=== PATIENT | male | born 1990 | race Hispanic/Latino ===

== ENCOUNTER 2023-04-12 08:30 | Emergency (ER) | payer SELFPAY ==
[~2023-04-12] VITALS: Ht 175.3 cm; Wt 101.0 kg
[2023-04-12] VITALS (7 sets, daily range): BP systolic 87–140; BP diastolic 62–94
[2023-04-12 08:51] LABS: BASO% 0.3 % (0-3); EOS% 4.2 % (0-8); HEMATOCRIT 42.4 % (39.0-50.0); HEMOGLOBIN 14.7 g/dl (14.0-18.0); IMMATURE GRANULOCYTES 0.1 % (0.0-5.0); LYMPH% 16.5 % (15-41); MEAN CELL VOLUME 89.8 fL CALC (80.0-100.0); MEAN CORPUSCULAR HGB 31.1 pG CALC (26.0-32.0); MEAN CORPUSCULAR HGB CONC 34.7 g/dL CAL (32.0-36.0); MONO% 7.5 % (2-13); NEUT# 7.34 thou/uL (1.82-7.42); NEUT% 71.4 % (42-76); RED BLOOD COUNT 4.72 mill/uL (4.70-6.10); RED CELL DISTRI WIDTH 11.7 % (11.5-15.5)
[2023-04-12 09:10] LABS: ALBUMIN 4.3 g/dL (3.2-5.0); ALKALINE PHOSPHATASE 63 u/l (38-126); ANION GAP 12 (6-22 (CALC)); BILIRUBIN, TOTAL 0.7 mg/dL (0.2-1.3); BUN 7 mg/dL (9-20); BUN/CREATININE RATIO 10 (12-20 (CALC)); CARBON DIOXIDE 25 mmol/l (22-30); CHLORIDE 106 mmol/l (95-108); CREATININE 0.7 mg/dL (0.7-1.3); GFR FOR AFR.AMER. > 60 ML/MIN (>=60 (CALC)); GFR OTHER RACES > 60 ML/MIN (>=60 (CALC)); POTASSIUM 3.8 mmol/l (3.5-5.1); SGOT/AST 44 u/l (17-59); SODIUM 140 mmol/l (137-146); TOTAL PROTEIN 7.6 g/dL (6.3-8.2)
[2023-04-12] MEDS ORDERED: NAPROXEN500 MG PO (10:33)
[2023-04-12] MEDS ORDERED: ZOFRAN4 MG/TAB PO (10:33)
== END 2023-04-12 10:50 | disposition home or self-care (01) | DRG 641 ==
LOC: ED 08:30
PROVIDERS: Family Medicine
DX: R73.03 Prediabetes (principal); R42 Dizziness and giddiness; R05.9 Cough, unspecified; E66.9 Obesity, unspecified; Z20.822 Contact with and (suspected) exposure to COVID-19